=== PATIENT | male | born 1995 | race African-American/Black ===

== ENCOUNTER 2021-12-30 16:18 | Emergency (ER) | payer MEDICAID ==
[~2021-12-30] VITALS: Ht 175.3 cm; Wt 91.0 kg
[2021-12-30] MEDS ORDERED: IBUPROFEN 600MG TABLET PO ONE (17:45)
[2021-12-30] MEDS ORDERED: CYCL10TA21 MT (18:51)
[2021-12-30] MEDS ORDERED: IBUP-2029 MT (18:51)
[2021-12-30 18:54] VITALS: BP 112/70
== END 2021-12-30 18:54 | disposition home or self-care (01) ==
LOC: ER 16:18
DX: S10.93XA Contusion of unspecified part of neck, initial encounter (principal); V43.62XA Car passenger injured in collision with other type car in traffic accident, initial encounter; Y93.89 Activity, other specified; Y92.410 Unspecified street and highway as the place of occurrence of the external cause
CPT/HCPCS: 72040; 99283

== ENCOUNTER 2025-04-23 15:04 | Emergency (ER) | payer SELFPAY ==
[~2025-04-23] VITALS: Ht 182.9 cm; Wt 106.0 kg
[~2025-04-23 15:04] MED LIST: CYCL10TA21 MT; IBUP-1455 MT
[2025-04-23 15:08] VITALS: BP 150/86; PULSE 84; RESP 18; TEMP 36.8; O2SAT 100
[2025-04-23 17:04] LABS: BASOPHILS % 1.1 % (0.0-2.0); EOSINOPHILS % 0.2 % (0.0-5.0); HEMATOCRIT. 46.5 % (42.0-52.0); HEMOGLOBIN. 15.4 g/dL (14.0-18.0); LYMPHOCYTES % 16.5 % (20.0-50.0); MEAN PLATELET VOLUME 8.9 fl (7.4-10.4); MONOCYTES % 4.4 % (2.0-8.0); NEUTROPHILS % 77.8 % (40.0-76.0); PLATELET 362 x1000/uL (130-400); RED BLOOD CELL COUNT 4.92 mill/uL (4.7-6.1); RED CELL DISTRIBUTION WIDTH 15.1 % (11.6-14.6)
[2025-04-23 17:17] LABS: CREATININE 1.1 mg/dL (0.6-1.3); UREA NITROGEN BLOOD 6 mg/dL (9-23)
== END 2025-04-23 19:23 | disposition home or self-care (01) ==
LOC: ER 15:04
DX: F10.129 Alcohol abuse with intoxication, unspecified (principal); F12.90 Cannabis use, unspecified, uncomplicated; Z79.899 Other long term (current) drug therapy; Y90.6 Blood alcohol level of 120-199 mg/100 ml
CPT/HCPCS: 36415; 80048; 80320; 85025; 93005; 99284; G0480